=== PATIENT | female | born 1945 | race Caucasian/White ===

== ENCOUNTER → 2018-01-19 | Outpatient (CLI) | payer MEDICARE ==
[~2018-01-19] MED LIST: ACYC800 PO; ADVIL100 MG PO; AMOCLA875 PO; AZIT250 PO; Diflucan200 MG PO; EYE GTTS; HYDACE10B PO; HYDR1TAB94 PO; OXYACE5T PO; PRED20 PO; Prednisone20 MG PO; Prilosec Otc20 MG PO
== END ==
LOC: LAB EV 18:38 → LAB SHORT 18:38
DX: R30.0 Dysuria (principal)
CPT/HCPCS: 87086

== ENCOUNTER → 2019-02-04 | Outpatient (CLI) | payer MEDICARE ==
[2019-02-04 17:32] LABS: BASOPHILS ABSOLUTE AUTO 0.04 K/mm3 (0.00-0.23); BASOPHILS PERCENT AUTO 1 % (0-2); EOSINOPHILS ABSOLUTE AUTO 0.19 K/mm3 (0.00-0.68); EOSINOPHILS PERCENT AUTO 3 % (0-6); Hematocrit 38.5 % (33.0-51.0); Hemoglobin 12.7 g/dL (11.5-16.0); IMMATURE GRAN ABSOLUTE AUTO 0.03 K/mm3 (0.00-0.10); IMMATURE GRAN PERCENT AUTO 0 % (0-1); LYMPHOCYTES ABSOLUTE AUTO 1.67 K/mm3 (0.84-5.20); LYMPHOCYTES PERCENT AUTO 25 % (21-46); MONOCYTES ABSOLUTE AUTO 0.55 K/mm3 (0.16-1.47); MONOCYTES PERCENT AUTO 8 % (4-13); Mean Corpuscular HGB 29.4 pg (26.0-34.0); Mean Corpuscular Volume 89 fL (80-100); Mean Platelet Volume 10.2 fL (9.1-12.4); NEUTROPHILS ABSOLUTE AUTO 4.22 K/mm3 (1.96-9.15); NEUTROPHILS PERCENT AUTO 63 % (41-73); Platelet Count 287 K/mm3 (150-400); RDW Coefficient Variation 12.8 % (11.7-14.2); Red Blood Cell Count 4.32 M/mm3 (3.80-5.20)
[2019-02-04 17:41] LABS: Albumin, Blood 3.9 g/dL (3.4-5.0); Albumin/Globulin Ratio 0.9 (0.8-1.8); Bilirubin, Total 0.2 mg/dL (0.1-1.0); Bun/Creatinine Ratio 21.7 (12.0-20.0); Calcium, Blood 9.1 mg/dL (8.5-10.1); Creatinine, Blood 0.92 mg/dL (0.40-1.00); Globulin, Blood 4.4 g/dL (2.2-4.0); Potassium, Blood 4.1 mmol/L (3.5-5.5); Total Protein, Blood 8.3 g/dL (6.4-8.2)
== END | disposition home or self-care (01) ==
LOC: LAB SHORT 17:25 → LAB EV 17:25
PROVIDERS: Physician Assistant
DX: R60.0 Localized edema (principal)
CPT/HCPCS: 80053; 83880; 85025

== ENCOUNTER → 2019-02-17 | Outpatient (CLI) | payer MEDICARE ==
[2019-02-17 16:27] LABS: BASOPHILS ABSOLUTE AUTO 0.03 K/mm3 (0.00-0.23); BASOPHILS PERCENT AUTO 1 % (0-2); EOSINOPHILS ABSOLUTE AUTO 0.11 K/mm3 (0.00-0.68); EOSINOPHILS PERCENT AUTO 2 % (0-6); Hemoglobin 12.4 g/dL (11.5-16.0); IMMATURE GRAN ABSOLUTE AUTO 0.02 K/mm3 (0.00-0.10); IMMATURE GRAN PERCENT AUTO 0 % (0-1); LYMPHOCYTES ABSOLUTE AUTO 1.34 K/mm3 (0.84-5.20); LYMPHOCYTES PERCENT AUTO 26 % (21-46); MONOCYTES ABSOLUTE AUTO 0.47 K/mm3 (0.16-1.47); MONOCYTES PERCENT AUTO 9 % (4-13); Mean Corpuscular HGB 29.7 pg (26.0-34.0); Mean Corpuscular HGB Conc 33.5 g/dL (31.5-36.5); Mean Corpuscular Volume 89 fL (80-100); Mean Platelet Volume 10.3 fL (9.1-12.4); NEUTROPHILS ABSOLUTE AUTO 3.17 K/mm3 (1.96-9.15); NEUTROPHILS PERCENT AUTO 62 % (41-73); Platelet Count 249 K/mm3 (150-400); RDW Coefficient Variation 12.9 % (11.7-14.2); RDW Standard Deviation 41.9 fL (35.1-46.3); Red Blood Cell Count 4.17 M/mm3 (3.80-5.20); White Blood Cell Count 5.14 K/mm3 (4.00-11.30)
== END | disposition home or self-care (01) ==
LOC: LAB EV 16:22 → LAB SHORT 16:22
PROVIDERS: Physician Assistant
DX: R22.41 Localized swelling, mass and lump, right lower limb (principal)
CPT/HCPCS: 85025

== ENCOUNTER 2019-06-15 08:19 | Day surgery (SDC) | payer MEDICARE ==
[~2019-06-15] VITALS: Ht 162.6 cm; Wt 57.6 kg
== END 2019-06-15 10:11 | disposition home or self-care (01) ==
LOC: ORSCSDS 08:19
PROVIDERS: Surgery
PROC: 0DBN8ZX Excision of Sigmoid Colon, Via Natural or Artificial Opening Endoscopic, Diagnostic (ICD-10-PCS; principal; 2019-06-15 09:30)
DX: Z12.11 Encounter for screening for malignant neoplasm of colon (principal); D12.5 Benign neoplasm of sigmoid colon; F17.210 Nicotine dependence, cigarettes, uncomplicated
CPT/HCPCS: 88305; J2704; J7120

== ENCOUNTER 2020-11-14 13:05 | Emergency (ER) | payer MEDICARE ==
[~2020-11-14] VITALS: Ht 162.6 cm; Wt 54.4 kg
[2020-11-14 13:54] LABS: BASOPHILS ABSOLUTE AUTO 0.03 K/mm3 (0.00-0.23); BASOPHILS PERCENT AUTO 0 % (0-2); EOSINOPHILS ABSOLUTE AUTO 0.22 K/mm3 (0.00-0.68); EOSINOPHILS PERCENT AUTO 2 % (0-6); Hematocrit 35.8 % (33.0-51.0); Hemoglobin 11.6 g/dL (11.5-16.0); IMMATURE GRAN ABSOLUTE AUTO 0.04 K/mm3 (0.00-0.10); IMMATURE GRAN PERCENT AUTO 0 % (0-1); LYMPHOCYTES ABSOLUTE AUTO 0.68 K/mm3 (0.84-5.20); LYMPHOCYTES PERCENT AUTO 7 % (21-46); MONOCYTES ABSOLUTE AUTO 0.67 K/mm3 (0.16-1.47); MONOCYTES PERCENT AUTO 7 % (4-13); Mean Corpuscular HGB 28.2 pg (26.0-34.0); Mean Corpuscular HGB Conc 32.4 g/dL (31.5-36.5); Mean Corpuscular Volume 87 fL (80-100); Mean Platelet Volume 9.9 fL (9.1-12.4); NEUTROPHILS ABSOLUTE AUTO 7.72 K/mm3 (1.96-9.15); NEUTROPHILS PERCENT AUTO 82 % (41-73); Platelet Count 341 K/mm3 (150-400); RDW Coefficient Variation 13.1 % (11.7-14.2); RDW Standard Deviation 41.2 fL (35.1-46.3); Red Blood Cell Count 4.11 M/mm3 (3.80-5.20); White Blood Cell Count 9.36 K/mm3 (4.00-11.30)
[2020-11-14 14:14] LABS: Alanine Aminotransfer (ALT/SGP 12 U/L (12-78); Albumin, Blood 2.9 g/dL (3.4-5.0); Albumin/Globulin Ratio 0.6 (0.8-1.8); Alk Phos 78 U/L (50-136); Anion Gap 7 mmol/L (6-16); Aspartate Aminotrans (AST/SGOT 13 U/L (12-37); Bilirubin, Total 0.3 mg/dL (0.1-1.0); Blood Urea Nitrogen 19 mg/dL (8-24); CO2, Blood 27 mmol/L (21-32); Calcium, Blood 9.1 mg/dL (8.5-10.1); Chloride, Blood 106 mmol/L (98-108); Creatinine, Blood 0.73 mg/dL (0.40-1.00); Globulin, Blood 4.9 g/dL (2.2-4.0); Glomerular Filtration Rate >60 (60-); Glucose, Blood 97 mg/dL (70-99); Potassium, Blood 4.1 mmol/L (3.5-5.5); Sodium, Blood 140 mmol/L (136-145); Total Protein, Blood 7.8 g/dL (6.4-8.2); Troponin I <0.015 ng/mL (0.000-0.040)
[2020-11-14] MEDS ORDERED: LEVO750 PO (15:50)
[2020-11-14] MEDS ORDERED: CODACE30 PO (16:25)
== END 2020-11-14 16:41 | disposition home or self-care (01) ==
LOC: ER 13:05
PROVIDERS: Physician Assistant
DX: J18.9 Pneumonia, unspecified organism (principal)
CPT/HCPCS: 36415; 71045; 80053; 84484; 85025; 93005; 93010; 99285-25; A9270

== ENCOUNTER 2020-11-18 00:07 | Emergency (ER) | payer MEDICARE ==
[~2020-11-18] VITALS: Ht 162.6 cm; Wt 54.4 kg
[~2020-11-18 00:07] MED LIST changes: +CODACE30 PO; +LEVO750 PO
[2020-11-18 00:36] LABS: BASOPHILS ABSOLUTE AUTO 0.03 K/mm3 (0.00-0.23); BASOPHILS PERCENT AUTO 0 % (0-2); EOSINOPHILS ABSOLUTE AUTO 0.27 K/mm3 (0.00-0.68); EOSINOPHILS PERCENT AUTO 4 % (0-6); Hematocrit 33.1 % (33.0-51.0); Hemoglobin 10.7 g/dL (11.5-16.0); IMMATURE GRAN ABSOLUTE AUTO 0.04 K/mm3 (0.00-0.10); IMMATURE GRAN PERCENT AUTO 1 % (0-1); LYMPHOCYTES PERCENT AUTO 17 % (21-46); MONOCYTES ABSOLUTE AUTO 0.63 K/mm3 (0.16-1.47); MONOCYTES PERCENT AUTO 8 % (4-13); Mean Corpuscular HGB 27.6 pg (26.0-34.0); Mean Corpuscular HGB Conc 32.3 g/dL (31.5-36.5); Mean Corpuscular Volume 86 fL (80-100); NEUTROPHILS ABSOLUTE AUTO 5.33 K/mm3 (1.96-9.15); NEUTROPHILS PERCENT AUTO 70 % (41-73); Platelet Count 379 K/mm3 (150-400); RDW Coefficient Variation 13.1 % (11.7-14.2); RDW Standard Deviation 40.6 fL (35.1-46.3); Red Blood Cell Count 3.87 M/mm3 (3.80-5.20)
[2020-11-18 00:54] LABS: Alanine Aminotransfer (ALT/SGP 11 U/L (12-78); Albumin/Globulin Ratio 0.7 (0.8-1.8); Alk Phos 78 U/L (50-136); Anion Gap 7 mmol/L (6-16); Aspartate Aminotrans (AST/SGOT 14 U/L (12-37); Bilirubin, Total 0.3 mg/dL (0.1-1.0); Blood Urea Nitrogen 35 mg/dL (8-24); Bun/Creatinine Ratio 28.7 (12.0-20.0); CO2, Blood 27 mmol/L (21-32); Calcium, Blood 9.1 mg/dL (8.5-10.1); Chloride, Blood 104 mmol/L (98-108); Creatinine, Blood 1.22 mg/dL (0.40-1.00); Globulin, Blood 4.6 g/dL (2.2-4.0); Glomerular Filtration Rate 46 (60-); Glucose, Blood 97 mg/dL (70-99); Potassium, Blood 3.8 mmol/L (3.5-5.5); Sodium, Blood 138 mmol/L (136-145); Total Protein, Blood 7.6 g/dL (6.4-8.2); Troponin I <0.015 ng/mL (0.000-0.040)
== END 2020-11-18 02:53 | disposition home or self-care (01) ==
LOC: ER 00:07
PROVIDERS: Emergency Medicine
DX: J18.9 Pneumonia, unspecified organism (principal); F17.200 Nicotine dependence, unspecified, uncomplicated; Z79.899 Other long term (current) drug therapy
CPT/HCPCS: 36415; 71046; 80053; 83605; 84484; 85025; 87040; 93005; 93010; 96374; 99285-25; J1885

== ENCOUNTER 2020-11-20 02:50 | Inpatient (IN) | payer MEDICARE ==
[~2020-11-20] VITALS: Ht 162.6 cm; Wt 55.0 kg
[2020-11-20 03:11] LABS: BASOPHILS ABSOLUTE AUTO 0.02 K/mm3 (0.00-0.23); BASOPHILS PERCENT AUTO 0 % (0-2); EOSINOPHILS ABSOLUTE AUTO 0.08 K/mm3 (0.00-0.68); EOSINOPHILS PERCENT AUTO 1 % (0-6); Hematocrit 38.8 % (33.0-51.0); Hemoglobin 12.8 g/dL (11.5-16.0); IMMATURE GRAN ABSOLUTE AUTO 0.03 K/mm3 (0.00-0.10); IMMATURE GRAN PERCENT AUTO 0 % (0-1); LYMPHOCYTES ABSOLUTE AUTO 0.78 K/mm3 (0.84-5.20); LYMPHOCYTES PERCENT AUTO 10 % (21-46); MONOCYTES ABSOLUTE AUTO 0.37 K/mm3 (0.16-1.47); MONOCYTES PERCENT AUTO 5 % (4-13); Mean Corpuscular HGB 28.1 pg (26.0-34.0); Mean Corpuscular Volume 85 fL (80-100); Mean Platelet Volume 9.9 fL (9.1-12.4); NEUTROPHILS ABSOLUTE AUTO 6.94 K/mm3 (1.96-9.15); NEUTROPHILS PERCENT AUTO 84 % (41-73); Platelet Count 403 K/mm3 (150-400); RDW Coefficient Variation 13.2 % (11.7-14.2); RDW Standard Deviation 41.1 fL (35.1-46.3); Red Blood Cell Count 4.55 M/mm3 (3.80-5.20); White Blood Cell Count 8.22 K/mm3 (4.00-11.30)
[2020-11-20 03:29] LABS: Alanine Aminotransfer (ALT/SGP 10 U/L (12-78); Albumin, Blood 2.8 g/dL (3.4-5.0); Albumin/Globulin Ratio 0.6 (0.8-1.8); Alk Phos 72 U/L (50-136); Anion Gap 9 mmol/L (6-16); Aspartate Aminotrans (AST/SGOT 12 U/L (12-37); Bilirubin, Total 0.3 mg/dL (0.1-1.0); Blood Urea Nitrogen 29 mg/dL (8-24); Bun/Creatinine Ratio 31.1 (12.0-20.0); CO2, Blood 26 mmol/L (21-32); Calcium, Blood 9.4 mg/dL (8.5-10.1); Chloride, Blood 105 mmol/L (98-108); Creatinine, Blood 0.93 mg/dL (0.40-1.00); Globulin, Blood 4.9 g/dL (2.2-4.0); Glomerular Filtration Rate >60 (60-); Glucose, Blood 143 mg/dL (70-99); Sodium, Blood 140 mmol/L (136-145); Total Protein, Blood 7.7 g/dL (6.4-8.2)
[2020-11-20 03:59] LABS: Source, Urine Clean Catch
[2020-11-20 04:02] LABS: Bilirubin, Urine Neg (Neg); Blood, Urine 1+ (Neg); Glucose Qualitative, Urine Neg (Neg); Ketones, Urine 2+ (Neg); Leukocyte Esterase, Urine 1+ (Neg); Nitrite, Urine Neg (Neg); Protein, Urine 2+ (Neg); Specific Gravity, Urine 1.025 (1.003-1.022); Urobilinogen, Urine NORM (Normal)
[2020-11-20 04:04] LABS: Appearance, Urine Clear (Clear); Color, Urine Yellow (P-Yellow)
[2020-11-20 04:08] LABS: Bacteria Many /hpf; Mucus Mod (0-Heavy); Red Blood Cells, Urine 0-2 /hpf (0-2); Squamous Epithelial Cells Mod /hpf (Few)
[2020-11-20 06:42] LABS: Influenza A, PCR NEGATIVE (NEGATIVE); Influenza B, PCR NEGATIVE (NEGATIVE); Resp Syncytial Virus, PCR NEGATIVE (NEGATIVE); SARS-Cov-2 (COVID-19) PCR, MMC NEGATIVE (NEGATIVE)
--- NOTE | 2020-11-20 08:06 | NUR ---
11/20/20 0806 ABDIRASHIDCATHLEEN POTTER PT RECEIVED ANTIBIOTICS PRIOR TO PROCEDURE, DR COLMENARES AWARE, NO NEW ORDERS.
--- NOTE | 2020-11-20 10:21 | NUR ---
ICU ADMISSION / DR COLMENARES: BEDSIDE REPORT RECEIVED FROM DR WAGGONER, ANESTHESIOLOGIST, AT TIME OF PT ARRIVAL TO ICU AT APPROX 0825. ON ASSESSMENT, THE PT IS AWAKE, ALERT & ORIENTED. SHE IS GRIMACING & HAS C/O OF PAIN TO ABDOMEN. SHE IS UNABLE TO NUMERICALLY RATE THE PAIN & INSTEAD STS "ITS THE WORST PAIN I'VE EVER HAD." MEDS PER EMAR. LS COARSE T/O, DIM IN BASES. PT HAS MOIST COUGH AT TIMES BUT IS UNWILLING TO COUGH FULLY R/T PAIN. IMPORTANCE OF COUGHING/DEEP BREATHING HAS BEEN DISCUSSED & THE PT HAS BEEN PROVIDED W/ A PILLOW TO SPLINT ABDOMEN DURING COUGHING. PT CURRENTLY ON 5L NC W/ O2 SATS > 92%, O2 TITRATION NOTED IN FLOWSHEET. MONITOR SHOWS SR W/ HR 80s. HYPOTENSION W/ SBP 90s AT TIMES, MAP MAINTAINING > 65. ABD IS TENDER AT REST. BT NORMOACTIVE x4. NGT IN PLACE TO L NARE, ATTACHED TO LIS. MIDLINE INCISION W/ BOGDAN WOUND VAC IN PLACE, DRESSING CDI. LUCAS DRAIN IN PLACE TO RUQ, SS OUTPUT NOTED. KING PATENT/ DRAINING CLOUDY YELLOW URINE. SKIN CONDITION OVERALL FRAGILE, ECCHYMOTIC, INTACT. DR COLMENARES AT BEDSIDE AT APPROX 0840. SHE STS THE PT IS TO REMAIN NPO W/ NGT TO LIS. LUCAS TO BULB SUCTION. CLARIFIED THAT 80 MG OT DOSE OF PROTONIX WAS GIVEN IN ED. NO OTHER CHANGES AT THIS TIME. WILL CONTINUE TO MONITOR & UPDATE NEEDED.
--- NOTE | 2020-11-20 13:16 | NUR ---
UPDATE / DR BUCKNER: THE PT IS NOW MORE AWAKE & STS THAT PAIN LEVEL IS IMPROVING. SHE IS TOLERATING REPOSITIONING WELL & AGREEABLE TO CARE PROVIDED. VSS. MIDLINE ABD DRESSING CDI & LUCAS CONTINUES W/ SS OUTPUT. DR BUCKNER AT BEDSIDE TO EVAL PT. NS ORDERS PLACED FOR MAINTAINENCE IVF. NO OTHER CHANGES AT THIS TIME.
--- NOTE | 2020-11-20 15:00 | NUR ---
FAMILY UPDATE: THIS RN HAS SPOKEN W/ BOTH OF THE PT's DAUGHTERS, LISTED ON INFO RELEASE, & PROVIDED THEM W/ UPDATES ON THE PT. DURING THIS TIME, ONE OF THE DAUGHTERS HAS INFORMED THIS RN THAT THE PT's SIBLINGS & FATHER HAVE ALL FROM GI CANCER & RELATED ULCERATIONS.
--- NOTE | 2020-11-20 16:18 | NUR ---
ADMIT: 11/20/20 DISCHARGE: DX: Perforated Abd viscus CC:kwilcox MARILYNN CALL: RESIDENCE: Home CAREGIVER: ANGELITO ALEX (CHILD) DX: Abdominal pain, COPD, low back pain, smoker DME: compression stocking CCM: HOME HEALTH: none SUMMARY: Admit: 11/20/20 11/20/20- pt had exploratory surgery today, exploratory laparotomy. Per chart review with Dr. Irving, pt will need at least 3 days in the hospital prior to d/c. -kjw
--- NOTE | 2020-11-20 17:25 | NUR ---
SHIFT SUMMARY: NO ACUTE CHANGES SINCE PRIOR UPDATES. PT REMAINS A&O, PLEASANT & COOPERATIVE W/ CARE. SHE HAS BEEN ABLE TO TALK ON THE PHONE W/ HER FAMILY T/O THE DAY & REPORTS OVERALL IMPROVEMENT IN HER ABD PAIN - MEDS PER EMAR. LS REMAIN COARSE T/O, PT HAS BEEN ABLE TO BETTER EXPECTORATE SPUTUM BY USING PILLOW TO SPLINT ABD DURING COUGHING. SPUTUM IS CLEAR W/ OCCASIONAL PINK TINGE NOTED. CURRENTLY ON 4L NC W/ O2 SATS > 92%. MONITOR SHOWS SR W/ HR 80s. SLIGHT HYPOTENSION NOTED W/ SBP 80-90s AT TIMES, MAP ON AVG > 60. NGT REMAINS TO LIS W/ BILIOUS OUTPUT NOTED IN TUBING BUT NONE IN CANISTER. MIDLINE BOGDAN WV PATENT W/ GREEN INDICATOR LIGHT BLINKING. LUCAS TO LUQ W/ CLOUDY SS OUTPUT. KING PATENT/ DRAINING YELLOW URINE. SKIN CONDITION OVERALL FRAGILE, Q2H REPOSITIONING TO MAINTAIN SKIN INTEGRITY. WILL CONTINUE TO MONITOR & REPORT OFF TO ONCOMING RN.
--- NOTE | 2020-11-20 21:46 | NUR ---
Care Assumed 1900 Pt A/O X 4, slow to respond at times and soft spoken. Calm and cooperative. On 2 L via NC, SPO2 > 90%. NSR. NGT in L nare, LIS with bilious output noted. Midline BOGDAN WV patient w/ green light blinking, abd dressing C/D/I. LUCAS to LUQ w/ cloudy SS output. Frausto patient/draining yellow urine. Patient complains of abd pain frequently, moaning and states pain 10/10. Susan DISABILITY EXAMINER called and new orders recieved. Patient hypotensive after receiving Fentanyl 50 mcg, MAP > 59. Susan DISABILITY EXAMINER, called and received orders for 500 NS Bolus. MAP > 65. Patients states "pain is better." Patient uses pillow to splint when coughing, educated on importance of deep breathing. Pt is a "mouth breather" while sleeping. Call light within reach.
--- NOTE | 2020-11-21 00:28 | NUR ---
Update Pt sleeping, easily awakens. Denies being in pain at this time. Will continue to monitor.
[2020-11-21 04:21] LABS: Hematocrit 27.7 % (33.0-51.0); Hemoglobin 8.8 g/dL (11.5-16.0); Mean Corpuscular HGB 28.5 pg (26.0-34.0); Mean Corpuscular HGB Conc 31.8 g/dL (31.5-36.5); Mean Platelet Volume 9.9 fL (9.1-12.4); Platelet Count 239 K/mm3 (150-400); RDW Coefficient Variation 13.6 % (11.7-14.2); RDW Standard Deviation 44.3 fL (35.1-46.3); Red Blood Cell Count 3.09 M/mm3 (3.80-5.20); White Blood Cell Count 10.81 K/mm3 (4.00-11.30)
--- NOTE | 2020-11-21 04:25 | NUR ---
Update- downtime Dr. Alexandre called at 0101 and recieved orders to give patient 500 NS bolus and increase maintaince fluid rate to 150 ml/hr. Patient MAP > 59. Pt a/o x 4. 0400 Dr. Alexandre called again in regards to patients low MAPs and recieved new orders.
[2020-11-21 04:39] LABS: Anion Gap 4 mmol/L (6-16); Blood Urea Nitrogen 14 mg/dL (8-24); Bun/Creatinine Ratio 20.5 (12.0-20.0); CO2, Blood 26 mmol/L (21-32); Calcium, Blood 7.5 mg/dL (8.5-10.1); Chloride, Blood 116 mmol/L (98-108); Creatinine, Blood 0.68 mg/dL (0.40-1.00); Glomerular Filtration Rate >60 (60-); Glucose, Blood 101 mg/dL (70-99); Potassium, Blood 4.2 mmol/L (3.5-5.5); Sodium, Blood 146 mmol/L (136-145)
[2020-11-21 04:41] LABS: Mean Corpuscular Volume 90 fL (80-100)
--- NOTE | 2020-11-21 05:03 | NUR ---
Provider call, MAP > 59, Hbg 8.8 Provider called in regards to patients low MAP and Hgb of 8.8. Recieved orders to started Levophed peripherally.
--- NOTE | 2020-11-21 06:18 | NUR ---
Shift Summary Pt on Norepinephrine GTT 3 mcg/min, MAP > 65, infusing via right wrist IV. IV flushing and site without infiltration, frequent checks. Pt sleeping/resting t/o shift. ABD pain treated per emar with good effect. Midline ABD dressing C/D/I, wound vac with green light. LUQ with LUCAS drain, SS output. Frausto in place, draining to gravity, 600 ml of clear yellow urine. Patient recieved three 500 NS bolus t/o shift to keep MAP > 65. Started on Levophed with good effect. Pt continues to be A/O X 4, calm/cooperative. NSR. ON 2 L via NC, SPO2 > 90%. Will report to oncoming shift.
--- NOTE | 2020-11-21 09:00 | NUR ---
ASSUMED CARE: REPORT RECEIVED FROM CLAIRE Vuong RN. ASSUMED CARE OF THIS PT AT APPROX 0700. ON ASSESSMENT, THE PT IS RESTING QUIETLY. SHE DENIES THE NEED FOR PAIN MEDS AT THAT TIME & STS SHE IS COMFORTABLE. LS ARE COARSE IN UPPER LOBES, IMPROVED FROM YESTERDAY. PT ON 2L NC W/ O2 SATS > 92%. CONTINUES TO HAVE MOIST COUGH W/ LESS SPUTUM PRODUCTION, PER PT REPORT. MONITOR SHOWS SR W/ HR 80-90s. LEVOPHED CURRENTLY INFUSING AT 3 MCG/MIN FOR HYPOTENSION. OGT CONTINUES TO LIS, PT STS ABD IS TENDER TO PALPATION OR W/ MOVEMENTS. SHE IS ENCOURAGED TO SPLINT COUGHING/ MOVEMENT BY HUGGING PILLOW TO ABD. MIDLINE BOGDAN WV IN PLACE, PATENT W/ GREEN INDICATOR LIGHT BLINKING, DRESSING CDI. LUCAS TO LUQ W/ LARGE AMNTS SS DRAINAGE NOTED. KING PATENT/ DRAINING CLOUDY YELLOW URINE. SKIN CONDITION OVERALL INTACT, ECCHYMOTIC. Q2H REPOSITIONING TO MAINTAIN SKIN INTEGRITY. WILL CONTINUE TO MONITOR & UPDATE NEEDED.
[2020-11-21 12:27] LABS: Hematocrit 32.3 % (33.0-51.0); Hemoglobin 10.1 g/dL (11.5-16.0); Mean Corpuscular HGB 28.3 pg (26.0-34.0); Mean Corpuscular HGB Conc 31.3 g/dL (31.5-36.5); Mean Corpuscular Volume 91 fL (80-100); Mean Platelet Volume 9.7 fL (9.1-12.4); Platelet Count 282 K/mm3 (150-400); RDW Coefficient Variation 13.8 % (11.7-14.2); RDW Standard Deviation 45.5 fL (35.1-46.3); Red Blood Cell Count 3.57 M/mm3 (3.80-5.20); White Blood Cell Count 15.69 K/mm3 (4.00-11.30)
--- NOTE | 2020-11-21 17:37 | NUR ---
SUMMARY: Admit: / Per Dr Irving, he will order PT OT for discharge assessment, ETA discharge or Friday. cp
--- NOTE | 2020-11-21 17:48 | NUR ---
SHIFT SUMMARY: NO ACUTE CHANGES SINCE PRIOR UPDATE. PT REMAINS A&O, PLEASANT & COOPERATIVE, ABLE TO VERBALIZE NEEDS. SHE HAS HAD INTERMITTENT C/O ABD PAIN THIS SHIFT, GENERALLY CORRELATED W/ REPOSITIONING OR OTHER ADLs - MEDS PER EMAR. 2L NC IN USE W/ O2 SATS > 92%, PT NOW PRODUCING LESS SPUTUM & COUGH IS LESS MOIST. MONITOR SHOWS SR W/ HR 80s. LEVOPHED CURRENTLY INFUSING AT 1.5 MCG/MIN FOR HYPOTENSION. OGT TO LIS W/ MINIMAL OUTPUT NOTED. BT HYPOACTIVE. LUCAS TO LUQ W/ MOD AMNTS SS OUTPUT THIS SHIFT - SEE I&O. BOGDAN TO MIDLINE ABD PATENT, DRESSING CDI. KING PATENT/ DRAINING YELLOW URINE. SKIN OVERALL INTACT, ECCHYMOTIC. Q2H REPOSITIONING TO MAINTAIN SKIN INTEGTRITY. DR BUCKNER HAS SEEN THE PT THIS SHIFT, PAIN MED REQUIREMENTS & OVERALL CONDITION DISCUSSED. NO CHANGES AT THIS TIME. WILL CONTINUE TO MONITOR & UPDATE NEEDED.
[2020-11-22 03:33] LABS: Hematocrit 32.7 % (33.0-51.0); Hemoglobin 9.9 g/dL (11.5-16.0); Mean Corpuscular HGB 27.6 pg (26.0-34.0); Mean Corpuscular HGB Conc 30.3 g/dL (31.5-36.5); Mean Corpuscular Volume 91 fL (80-100); Mean Platelet Volume 9.6 fL (9.1-12.4); Platelet Count 251 K/mm3 (150-400); RDW Coefficient Variation 14.1 % (11.7-14.2); RDW Standard Deviation 47.3 fL (35.1-46.3); Red Blood Cell Count 3.59 M/mm3 (3.80-5.20); White Blood Cell Count 16.34 K/mm3 (4.00-11.30)
[2020-11-22 03:55] LABS: Alanine Aminotransfer (ALT/SGP 10 U/L (12-78); Albumin, Blood 1.7 g/dL (3.4-5.0); Albumin/Globulin Ratio 0.5 (0.8-1.8); Alk Phos 46 U/L (50-136); Anion Gap 7 mmol/L (6-16); Aspartate Aminotrans (AST/SGOT 37 U/L (12-37); Bilirubin, Total 0.2 mg/dL (0.1-1.0); Blood Urea Nitrogen 13 mg/dL (8-24); Bun/Creatinine Ratio 18.4 (12.0-20.0); CO2, Blood 23 mmol/L (21-32); Calcium, Blood 7.9 mg/dL (8.5-10.1); Chloride, Blood 116 mmol/L (98-108); Creatinine, Blood 0.71 mg/dL (0.40-1.00); Globulin, Blood 3.7 g/dL (2.2-4.0); Glomerular Filtration Rate >60 (60-); Glucose, Blood 77 mg/dL (70-99); Potassium, Blood 3.7 mmol/L (3.5-5.5); Sodium, Blood 146 mmol/L (136-145); Total Protein, Blood 5.4 g/dL (6.4-8.2)
--- NOTE | 2020-11-22 05:36 | NUR ---
SHIFT SUMMARY PATIENT SLEPT WELL THROUGH NIGHT. PAIN WELL CONTROLLED WITH AVAILABLE PRN MEDICATIONS. VSS. ASSESSMENT IS CHARTED. WILL CONTINUE TO MONITOR.
--- NOTE | 2020-11-22 11:06 | NUR ---
AM NOTE.... ASSUMED CARE OF PT AT 0700. PT IS A&Ox4, SLOW TO RESPOND AND VERY SOFT SPOKEN. PT IS OFF OF LEVOPHED SINCE APROX 0530 PER NOC SHIFT RN REPORT. PT'S BP IS STABLE. PT IS IN NSR IN THE 80'S-90'S, PT HAS DEPENDENT EDEMA TO HER BILAT HANDS AND FEET. 2+ TO HER BUE AND BLE. L/S CLEAR T/O ON 2L NC WITH O2 SATS >90% PT'S RR IS LOW IN AT 8-10 AND SHALLOW D/T PAIN FROM HER ABD SURGICAL SITE. AN I.S. WAS PROVIDED TO THE PT, PT WAS EDUCATED ON ITS USE, PT DEMONSTRATED PROPER USE OF THE I.S. WITH THIS RN. ABD SITE HAS PICCO DRESSING THAT HAS SMALL AMOUNTS OF DRY S/S DRAINAGE. LUCAS DRAIN TO THE LUQ IS DRAINING COPIOUS AMOUNTS OF S/S, THIS HAS BEEN DRAINED APROX EVERY 1-2 HRS SO FAR THIS SHIFT. PT WAS MEDICATED FOR PAIN PER EMAR WITH GOOD RESULTS, PT IS VERY DROWSY BUT WAKES EASILY TO VERBAL STIMULI AND TOUCH. KING IS PATNET AND DRAINING CLEAR LIGHT YELLOW URINE TO GRAVITY, NG TUBE IS PATENT AND SET TO LIGHT INT SUCTION. PT WORKED WITH PT/OT AND WAS NERISSA TO GET UP INTO THE CHAIR WITH 2P ASSIST. WHILE UP IN THE CHAIR THE PT'S BP STARTED TO DROP, EFM PROVIDER WAS CALLED AND A NEW ORDER WAS OBTAINED FOR MIDODRENE 10MG TID. THIS WAS GIVEN WITH GOOD RESULTS. WILL CONTINUE TO MONITOR.
--- NOTE | 2020-11-22 16:08 | NUR ---
SUMMARY... NO ACUTE NEGATIVE CHANGES NOTED THIS SHIFT. PT WAS UP IN THE CHAIR WITH 2P MOD TRANSFER. PT HAS A RED AREA TO HER BUTTOCKS, IT IS BLANCHABLE AND A MEPILEX WAS PLACED TO ADD PRETECTION TO THE AREA. PT'S NG CONTINUES TO HAVE VERY MINIMAL OUTPUT WHEN HOOKED TO LOW INT SUCTION. PT'S LUCAS DRAIN CONTINUES TO HAVE A LARGE AMOUNT OF S/S OUTPUT APROX 60MLS/Q2HRS. KING WAS D/C'D AT 1600 PER ORDERS. PT'S RR HAS IMPROVED WITH A DECREASED AMOUNT OF IV NARCOTICS GIVEN THIS SHIFT. PT'S BP CONTINUES TO BE STABLE WITH THE MIDODRENE. NO CHANGES TO THE PICCO DRESSING OR THE LUCAS DRESSING. ATTENDS WAS PUT IN PLACE AFTER THE D/C OF THE KING CATH. PT IS TO TRANSFER TO PCU 3. WILL CONTINUE TO MONITOR UNTIL REPORT IS GIVEN AND PT IS TRANSFERED TO PCU.
--- NOTE | 2020-11-22 16:36 | NUR ---
Call to Fely Dominguez for telephone report. she will call soon.
--- NOTE | 2020-11-22 16:44 | NUR ---
Telephone report received from JAVI Geiger at this time.
--- NOTE | 2020-11-22 17:42 | NUR ---
Spiritual care note: Mrs. Du was very sleepy and weak. She nodded 'yes' to prayer, but fell back to sleep. I prayed for her and will remain available.
--- NOTE | 2020-11-22 17:56 | NUR ---
Pt arrived to PCU 3; She is craning her neck, holding her arms bent in front of her, weak very moist sounding cough, productive with white thick frothy sputum. She appears not to want to move at all, and is very sensitive to any movement and touch. States that her 'tummy hurts'. Eyes half open, appears very weak and sleepy. NGT to Low intermittent suction. Oxygen delivery 2 l/min, vital signs taken and documented. Continuous pulse oximetry in place. vital signs stable IV fluids infusing per orders, via 20 g IV in the right medial wrist.
--- NOTE | 2020-11-22 18:05 | NUR ---
Midline abdominal dressing is clean, dry and intact. Noted rupert drain in place. LUCAS drain also in place right upper abdomen, with serosanginous drainage in the bulb. SCDs are in place.
--- NOTE | 2020-11-22 18:33 | NUR ---
pulmonary toilet: Pt spo2 was 86-88. Very coarse sounding and weak cough. Had pt use flutter valve a few times, deep breathing and coughing, and was able to suction orally moderate amount of very thick white secretions. Shampoo, oral care and face wash done. spo2 on 3 l/min is 93%. She is asking for pain medication.
--- NOTE | 2020-11-23 05:15 | NUR ---
SHIFT SUMMARY PT WAS ALERT AND RESPONSIVE TO VERBAL STIMULI. DIFFICULT TO ASSESS MENTATION PT WAS UNABLE TO SPEAK WELL. RESPONSES WERE SLOW AND MINIMAL. PT ABLE TO ANSWER YES/NO QUESTIONS AND SAY SHORT MINIMAL WORDS. PT SHOWED TO BE ORIENTED TO PERSON, PLACE, AND TIME. PT BASELINE IS UNKNOWN. RESPIRATORY STATUS INCREASED AT START OF SHIFT WITH O2 NEED UP TO 4LPM NC. RESPIRTORY RATE WAS SLOW WITH A VERY WEAK COUGH, NOT STRONG ENOUGH TO CLEAR SECRETIONS. LUNGS CRACKLY AND WET SOUNDING. O2 SATS 85-95% ON 4LPM, ATTEMPTED TO TITRATE PT DOWN WITH MINIMAL SUCCESS. COUGH AND DEEP BREATHING COACHING WITH PT HAD MINIMAL SHORT-TERM POSITIVE EFFECT ON O2 NEEDS. SURGICAL SITES REMAINED C/D/I. AROUND 100ML OUT OF LUCAS DRAIN. FLUID COLOR SEROSANGUINEOUS AT FIRST EMPTY THEN CLEAR/YELLOW AT SECOND EMPTYING. WOUND VAC DRESSING HAS GOOD SEAL WITH VACCUUM MAINTAINED. VITALS WERE STABLE WITH BP HYPOTENSIVE T/O THE SHIFT AT 97-107 SYSTOLIC, MAP'S >65. HR 90'S. NO ELEVATED TEMP. PAIN CONTROLLED WITH PRN MEDICATION. PT HAD A QUIET UNEVENTFUL NIGHT. PT STATED HAVING PAIN THAT WAS WELL CONTROLLED WITH PRN MEDICATIONS
--- NOTE | 2020-11-23 10:54 | NUR ---
NOTICED WATERY DRAINIAGE MIXED W BLOOD LEAKING FROM R WRIST IV SITE. PLACED IV FLUIDS ON SBY AND REMOVED PERIPHERAL IV, PT TOLERATED ADEQUATELY BUT HAD SOME TENDERNESS WITH REMOVAL OF THE FILM DRESSING. NO SIGNS OF INFILTRATION/INFECTION/IRRITATION TO SITE. MINIMAL BLEEDING POST REMOVAL, GAUZE AND COBAN DRESSING PLACED.
--- NOTE | 2020-11-23 11:37 | NUR ---
Assisted up to chair with physical therapist. Sitting up in chair after the activity, spo2 84% on 2 l/min. Encouraged deep breathing through her nose and spo2 improved to 86%. O2 delivery increased to 3 l/min, pt continued to deep breathe and spo2 improved to 89%. Encouraged use of flutter valve, which she is doing now. States she smokes 1 pack of cigarettes/day. Oral care done by the patient with minimal assistance. she was able to put her dentures in by herself.
--- NOTE | 2020-11-23 13:19 | NUR ---
CALL TO DR. Irving regarding his concern for oversedation in the patient. New orders to dc fentanyl, added toradol and VBG. Pt just now was shouting "help" because she had pulled her teeth out, glasses off, and had it tangled up in her oxygen tubing and NG tube. NGT is still correctly placed. Reapplied the oxygen tubing; pt has spo2 88-91% on 3 l/min Oxygen delivery. She is sitting up in the recliner chair, upright at this time. She is asking for pain relief.
[2020-11-23 13:46] LABS: PCO2 Venous 49.6 mmHg (38-42); pH Blood Venous 7.36 (7.34-7.37)
[2020-11-23 13:47] LABS: Base Excess Venous 2.4 mmol/L; Bicarbonate Venous 25.8 mmol/L (24.0-30.0); PO2 Venous 37.7 mmHg (38-42)
--- NOTE | 2020-11-23 13:49 | NUR ---
PLACED CALL BACK TO DAUGHTER IN LAW SUDHEER ABI AFTER VERIFYING CONSENT FOR RELEASE OF INFORMATION IN PAPER CHART OUTSIDE PT'S ROOM. DAUGHTER IN LAW EXPRESSED CONCERN THAT THE FAMILY DOES NOT WANT THE PATIENT TO DISCHARGE TO [facility]. NETEZZA DEVELOPER VERBALIZED TO HER THAT THERE ARE NO PLANS TO DISCHARGE TODAY. SUDHEER REPORTS SHE IS ALSO AWAITING A CALL BACK FROM REAL ESTATE ANALYST AT THIS TIME.
--- NOTE | 2020-11-23 13:53 | NUR ---
SUMMARY: ADMIT: 11/20/20 11/23/20- PER CHART REVIEW WITH DR. BUCKNER, PT IS STILL VERY SICK AND THERE IS NO ETA FOR D/C AT THIS TIME. PT COULD POTENTIAL BE D/C NEXT WEEK. FILLED OUT SNF REF. FORM AND GAVE TO [facility] TO HAVE PT REVIEWED BUT AFTER SPEAKING WITH DR BUCKNER, REQUESTED THAT THIS BE PUT ON HOLD UNTIL PT IS STABLE TO D/C. CALLED AND SPOKE WITH PT'S BASIM ROSALES. STATES THAT HE IS NOT CAPABLE OF BEING FULL-TIME CAREGIVER FOR HIS HE HAS TROUBLE WITH MOBILITY HIMSELF. HE DID STATE THAT PT HAS A "SIT TO STAND" CHAIR TO HELP GET HER OUT OF THE CHAIR. HE DID STATE THAT THEIR SON [place] BUT HE IS DISABLED AND MOST LIKELY COULD NOT HELP WITH CARE OF PT EITHER DUE TO PROBLEMS WITH HIS HANDS. STATES THAT THEY CAN NOT AFFORD TO MOVE INTO ASSISTED LIVING AND THEY CAN'T AFFORD TO HIRE ANY CAREGIVERS BECAUSE THEY HAVE JUST ENOUGH MONEY TO COVER THEIR RENT AND BILLS. THEY GET FOOD STAMPS FOR FOOD. THEY HAVE TRIED TO APPLY FOR MEDICAID/OHP BUT THEY WERE TOLD THEY MAKE TOO MUCH MONEY ($14-18 TOO MUCH.) HE STATES THAT THEY HAVE TRIED MULTI. TIMES TO GET ON OHP. CALLED [employer] TO SEE IF PT HAS BENEFITS WITH THEM. WAS TOLD THAT PT HAS MEDICAL AND SNAP BENEFITS AND IS ELIGIBLE FOR LONG-TERM CARE BENEFITS. PT WOULD NEED TO APPLY FOR SERVICES. WAS PROVIDED WITH WAYS THAT THIS CAN BE DONE; ONLINE AT [email or web address], FILL OUT ONLINE APPLICATION; CALL [phone] OR THEY CAN GO IN PERSON. PT WOULD HAVE TO DO THIS HERSELF OR GIVE CONSENT TO HAVE SON OR TO APPLY FOR BENEFITS ON HER BEHALF. CALLED AND LMOM FOR SON TO RETURN CALL TO SEE IF HE CAN AID IN GETTING SERVICES FOR PT.- MARGIE
--- NOTE | 2020-11-23 15:12 | NUR ---
Pt pulled the NG tube out by herself, stated that it was hurting her. There has been minimal drainage from the low intermittent suction. Pt has hypoactive bowel tones. Dr. Wyman called and orders to d/c NGT was received.
--- NOTE | 2020-11-23 16:13 | NUR ---
SUMMARY: ADMIT: 11/20/20 11/23/20- SPOKE WITH [id number], UYEN ALEX, WHO CALLED [facility] WITH CONCERNS ABOUT PT BEING DISCHARGED. SHE STATED THAT FAMILY WAS "FREAKING OUT" STATING THAT PT WAS GOING TO BE D/C TO [facility] AND THEY HAD NO SAY IN HER CARE. UYEN TOLD FAMILY THAT SHE WOULD REACH OUT AND GET CLARIFICATION OF WHAT IS THE PLAN WITH THE PT BECAUSE SHE DOESN'T FEEL THAT THIS WOULD BE CONTINUED. DISCUSSED WITH HER THAT DOCTOR IS NOT GOING TO BE D/C THE PT ANYTIME SOON SHE IS NOT MEDICALLY STABLE. SPOKE WITH UYEN AND SHE STATES THAT THERE ARE PLENTY OF FAMILY TO HELP THE PT AT HOME AND THEY FEEL THAT IT WOULD BE BEST IF THE PT WENT HOME WITH SERVICES THAN GO TO SNF. DISCUSSED WITH HER THAT CONVERSATION WAS HAD WITH AND HE EXPRESSED THAT HE COULD NOT TAKE CARE OF HER AND WE NEED TO MAKE SURE THAT SHE HAS A SAFE D/C WHERE EVER SHE GOES. ALSO DISCUSSED WITH HER THE CONVERSATION WITH PT'S ABOUT FINANCES AND WHAT THEY COULD AFFORD. DISCUSSED BENEFITS AVAILABLE THROUGH [employer]. DAUGHTER REQUESTED AN EMAIL BE SENT TO HER WITH THE INFORMATION. SENT GENERIC INFORMATION OF HOW TO GET IN CONTACT WITH [employer] THROUGH ONLINE, PHONE OR IN PERSON. DAUGHTER IN LAW WILL REACH OUT TO FAMILY AND UPDATE THEM ON PLAN FOR PT.-KJW 11/23/20- PER CHART REVIEW WITH DR. BUCKNER, PT IS STILL VERY SICK AND THERE IS NO ETA FOR D/C AT THIS TIME. PT COULD POTENTIAL BE D/C NEXT WEEK. FILLED OUT SNF REF. FORM AND GAVE TO [facility] TO HAVE PT REVIEWED BUT AFTER SPEAKING WITH DR BUCKNER, REQUESTED THAT THIS BE PUT ON HOLD UNTIL PT IS STABLE TO D/C. CALLED AND SPOKE WITH PT'S BASIM ORSALES. STATES THAT HE IS NOT CAPABLE OF BEING FULL-TIME CAREGIVER FOR HIS HE HAS TROUBLE WITH MOBILITY HIMSELF. HE DID STATE THAT PT HAS A "SIT TO STAND" CHAIR TO HELP GET HER OUT OF THE CHAIR. HE DID STATE THAT THEIR SON [place] BUT HE IS DISABLED AND MOST LIKELY COULD NOT HELP WITH CARE OF PT EITHER DUE TO PROBLEMS WITH HIS HANDS. STATES THAT THEY CAN NOT AFFORD TO MOVE INTO ASSISTED LIVING AND THEY CAN'T AFFORD TO HIRE ANY CAREGIVERS BECAUSE THEY HAVE JUST ENOUGH MONEY TO COVER THEIR RENT AND BILLS. THEY GET FOOD STAMPS FOR FOOD. THEY HAVE TRIED TO APPLY FOR MEDICAID/OHP BUT THEY WERE TOLD THEY MAKE TOO MUCH MONEY ($14-18 TOO MUCH.) HE STATES THAT THEY HAVE TRIED MULTI. TIMES TO GET ON OHP. CALLED [employer] TO SEE IF PT HAS BENEFITS WITH THEM. WAS TOLD THAT PT HAS MEDICAL AND SNAP BENEFITS AND IS ELIGIBLE FOR LONG-TERM CARE BENEFITS. PT WOULD NEED TO APPLY FOR SERVICES. WAS PROVIDED WITH WAYS THAT THIS CAN BE DONE; ONLINE AT [email or web address], FILL OUT ONLINE APPLICATION; CALL [phone] OR THEY CAN GO IN PERSON. PT WOULD HAVE TO DO THIS HERSELF OR GIVE CONSENT TO HAVE SON OR TO APPLY FOR BENEFITS ON HER BEHALF. CALLED AND LMOM FOR SON TO RETURN CALL TO SEE IF HE CAN AID IN GETTING SERVICES FOR PT.- MAGGIE: ADMIT: 11/20/20 11/23/20- SPOKE WITH [id number], UYEN ABI, WHO CALLED [facility] WITH CONCERNS ABOUT PT BEING DISCHARGED. SHE STATED THAT FAMILY WAS "FREAKING OUT" STATING THAT PT WAS GOING TO BE D/C TO [facility] AND THEY HAD NO SAY IN HER CARE. UYEN TOLD FAMILY THAT SHE WOULD REACH OUT AND GET CLARIFICATION OF WHAT IS THE PLAN WITH THE PT BECAUSE SHE DOESN'T FEEL THAT THIS WOULD BE CONTINUED. DISCUSSED WITH HER THAT DOCTOR IS NOT GOING TO BE D/C THE PT ANYTIME SOON SHE IS NOT MEDICALLY STABLE. SPOKE WITH UYEN AND SHE STATES THAT THERE ARE PLENTY OF FAMILY TO HELP THE PT AT HOME AND THEY FEEL THAT IT WOULD BE BEST IF THE PT WENT HOME WITH SERVICES THAN GO TO SNF. DISCUSSED WITH HER THAT CONVERSATION WAS HAD WITH AND HE EXPRESSED THAT HE COULD NOT TAKE CARE OF HER AND WE NEED TO MAKE SURE THAT SHE HAS A SAFE D/C WHERE EVER SHE GOES. ALSO DISCUSSED WITH HER THE CONVERSATION WITH PT'S ABOUT FINANCES AND WHAT THEY COULD AFFORD. DISCUSSED BENEFITS AVAILABLE THROUGH [employer]. DAUGHTER REQUESTED AN EMAIL BE SENT TO HER WITH THE INFORMATION. SENT GENERIC INFORMATION OF HOW TO GET IN CONTACT WITH [facility] THROUGH ONLINE, PHONE OR IN PERSON. DAUGHTER IN LAW WILL REACH OUT TO FAMILY AND UPDATE THEM ON PLAN FOR PT.-MARGIE 11/23/20- PER CHART REVIEW WITH DR. BUCKNER, PT IS STILL VERY SICK AND THERE IS NO ETA FOR D/C AT THIS TIME. PT COULD POTENTIAL BE D/C NEXT WEEK. FILLED OUT SNF REF. FORM AND GAVE TO [facility] TO HAVE PT REVIEWED BUT AFTER SPEAKING WITH DR BUCKNER, REQUESTED THAT THIS BE PUT ON HOLD UNTIL PT IS STABLE TO D/C. CALLED AND SPOKE WITH PT'S BASIM ROSALES. STATES THAT HE IS NOT CAPABLE OF BEING FULL-TIME CAREGIVER FOR HIS HE HAS TROUBLE WITH MOBILITY HIMSELF. HE DID STATE THAT PT HAS A "SIT TO STAND" CHAIR TO HELP GET HER OUT OF THE CHAIR. HE DID STATE THAT THEIR SON L[place] BUT HE IS DISABLED AND MOST LIKELY COULD NOT HELP WITH CARE OF PT EITHER DUE TO PROBLEMS WITH HIS HANDS. STATES THAT THEY CAN NOT AFFORD TO MOVE INTO ASSISTED LIVING AND THEY CAN'T AFFORD TO HIRE ANY CAREGIVERS BECAUSE THEY HAVE JUST ENOUGH MONEY TO COVER THEIR RENT AND BILLS. THEY GET FOOD STAMPS FOR FOOD. THEY HAVE TRIED TO APPLY FOR MEDICAID/OHP BUT THEY WERE TOLD THEY MAKE TOO MUCH MONEY ($14-18 TOO MUCH.) HE STATES THAT THEY HAVE TRIED MULTI. TIMES TO GET ON OHP. CALLED [employer] TO SEE IF PT HAS BENEFITS WITH THEM. WAS TOLD THAT PT HAS MEDICAL AND SNAP BENEFITS AND IS ELIGIBLE FOR LONG-TERM CARE BENEFITS. PT WOULD NEED TO APPLY FOR SERVICES. WAS PROVIDED WITH WAYS THAT THIS CAN BE DONE; ONLINE AT [email or web address], FILL OUT ONLINE APPLICATION; CALL [phone] OR THEY CAN GO IN PERSON. PT WOULD HAVE TO DO THIS HERSELF OR GIVE CONSENT TO HAVE SON OR TO APPLY FOR BENEFITS ON HER BEHALF. CALLED AND LMOM FOR SON TO RETURN CALL TO SEE IF HE CAN AID IN GETTING SERVICES FOR PT.- MARGIE
--- NOTE | 2020-11-23 16:52 | NUR ---
Since receiving the Dilaudid, the pt has been sleeping in the recliner chair, reclined. Continuous oximetry shows spo2 holding well into the 94+ range on 2 l/min O2 delivery. She is difficult to awaken, so Midodrine was held at 1600 when MAP was borderline, as she was too sleepy to even attempt a trial of swallowing water. At this time the blood pressure is improved and MAP is 72 and she is still very sleepy and difficult to awaken.
[2020-11-24 03:50] LABS: BASOPHILS ABSOLUTE AUTO 0.01 K/mm3 (0.00-0.23); BASOPHILS PERCENT AUTO 0 % (0-2); EOSINOPHILS ABSOLUTE AUTO 0.29 K/mm3 (0.00-0.68); EOSINOPHILS PERCENT AUTO 4 % (0-6); Hematocrit 30.5 % (33.0-51.0); Hemoglobin 9.5 g/dL (11.5-16.0); IMMATURE GRAN ABSOLUTE AUTO 0.05 K/mm3 (0.00-0.10); IMMATURE GRAN PERCENT AUTO 1 % (0-1); LYMPHOCYTES ABSOLUTE AUTO 0.66 K/mm3 (0.84-5.20); LYMPHOCYTES PERCENT AUTO 8 % (21-46); MONOCYTES ABSOLUTE AUTO 0.55 K/mm3 (0.16-1.47); MONOCYTES PERCENT AUTO 7 % (4-13); Mean Corpuscular HGB 27.7 pg (26.0-34.0); Mean Corpuscular HGB Conc 31.1 g/dL (31.5-36.5); Mean Corpuscular Volume 89 fL (80-100); Mean Platelet Volume 9.6 fL (9.1-12.4); NEUTROPHILS ABSOLUTE AUTO 6.84 K/mm3 (1.96-9.15); NEUTROPHILS PERCENT AUTO 81 % (41-73); Platelet Count 238 K/mm3 (150-400); RDW Coefficient Variation 14.1 % (11.7-14.2); RDW Standard Deviation 46.2 fL (35.1-46.3); Red Blood Cell Count 3.43 M/mm3 (3.80-5.20)
[2020-11-24 04:11] LABS: Alanine Aminotransfer (ALT/SGP 14 U/L (12-78); Albumin, Blood 1.6 g/dL (3.4-5.0); Albumin/Globulin Ratio 0.4 (0.8-1.8); Alk Phos 46 U/L (50-136); Anion Gap 2 mmol/L (6-16); Aspartate Aminotrans (AST/SGOT 27 U/L (12-37); Bilirubin, Total 0.4 mg/dL (0.1-1.0); Blood Urea Nitrogen 17 mg/dL (8-24); Bun/Creatinine Ratio 21.6 (12.0-20.0); CO2, Blood 30 mmol/L (21-32); Calcium, Blood 8.4 mg/dL (8.5-10.1); Chloride, Blood 116 mmol/L (98-108); Creatinine, Blood 0.79 mg/dL (0.40-1.00); Globulin, Blood 3.7 g/dL (2.2-4.0); Glomerular Filtration Rate >60 (60-); Glucose, Blood 90 mg/dL (70-99); Potassium, Blood 3.9 mmol/L (3.5-5.5); Sodium, Blood 148 mmol/L (136-145); Total Protein, Blood 5.3 g/dL (6.4-8.2)
--- NOTE | 2020-11-24 04:52 | NUR ---
SHIFT SUMMARY PT WAS MORE ALERT THAN PREVIOUS NOC SHIFT, ABLE TO FOLLOW DIRESCIONS AND ANSWER MOST QUESTIONS APPROPRIATELY WITH YES OR NO. PER REPORT PT HAS SOME BASELINE CONFUSION, IT DOES NOT SEEM PT IS TO BASELINE YET SHE IS STILL CONFUSED AT TIMES. VERY SLOW TO RESPOND WITH CONSTANT VERBAL STIMULATION. PT STATED HAVING PAIN IN STOMACH, PRN DILAUDID GIVEN AND PT ABLE TP SLEEP, PAIN WAS CONTROLLED. PT WAS ON 3 LPM VIA NC WITH O2 SATS >90% UP TO 4-5 LPM WITH REPOSITIONING AND ORAL CARE. VIATLS WERE STABLE WITH BP 100-135 SYSTOLIC. HR 80-90'S. PT HAS LITTLE CHANGE FROM PREVIOUS NOC SHIFT BUT SEEMS TO BE IMPROVING.
--- NOTE | 2020-11-24 10:55 | NUR ---
PT ALERT TO SELF, PLACE AND CITY. ABLE TO TELL ME WHY SHE IS HERE. VERY SLEEPY AND LETHARGIC. OPENEING EYES TO SOUND AND ANSWERING CARE QUESTIONS APPROPRIATLY. VITAL SIGNS STABLE THIS AM. ON 3 L O2 SATING ABOVE 92%. COUGH IS MOIST, WEAK AND NONPRODUCTIVE. ASSISTED WITH ORAL CARE AND SUCTION. TELE SHOWING SINUS WITH HR IN 80'S. ANTIBIOTICS INFUSING THIS AM. PHYSICAL THERAPY ASSISTED PT TO BS WITH ONE PERSON ASSIST AND GAIT BELT. UPPER GI SCAN PREFORMED THIS AM. MIDLINE BOGDAN WOUND VAC TO SUCTION. LUCAS DRAIN, DRAINING CLEAR/YELLOW FLUID. WILL CONTINUE TO MONITOR AND REPORT OFF.
--- NOTE | 2020-11-24 16:10 | NUR ---
11/24/20- per chart review, pt is currently on 3L of O2. She appears to be improving with her confusion and she is able to communicate with Yes/No questions. Her diet was advanced to clear liquids but she has been changed back to NPO this afternoon due to speech therapy not able to work with pt today. -gabriela
--- NOTE | 2020-11-24 17:18 | NUR ---
PT UP TO RECLINER THIS AFTERNOON. WITH 1-2 PERSON ASSIST USING GAIT BELT AND WALKER. VITAL SIGNS REMAIN STABLE. TELE SHOWING SINUS WITH HR 80'S. ON 3 L O2 SATING AT 94%. DENIES CHEST PAIN. COMPLAIN OF ABDOMEN PAIN. MEDICATED PER EMAR WTH RELIEF. PT SLEEPING THROUGHOUT MOST OF THE SHIFT. USING BSC. BOGDAN WOUND VAC TO MIDLINE INCISION, DRESSING REMAINS INTACT. LUCAS DRAIN TO LUQ, DRAINING CLEAR/YELLOW LIQUID. DRAINING NEEDED. IN TO VISIT PT THIS AFTERNOON. PT COUGH STILL SOUNDING MOIST AND WEAK. ABLE TO COUGH UP SOME WHITE SPUTUM THIS AFTERNOON. SPEECH ATTEMPTED TO ASSESS PT THIS AFTERNOON, BUT PT WAS TOO SLEEPY. REMAINING NPO UNTIL SPEECH ABLE TO ASSESS. ORAL CARE Q4. Q2 TURNS. CALL LIGHT REMAINED IN REACH AND BED IN LOW LOCKED POSITION. WILL CONTINUE TO MONITOR AND REPORT OFF.
--- NOTE | 2020-11-24 19:45 | NUR ---
PT IS ALERT AND ORIENTED X3, HOWEVER SHE ANSWERS YES TO MOST QUESTIONS ASKED. PT HAS A WEAK MOIST COUGH - DEMONSTRATES USE OF PICKLE. CONTINOUS BIOX ON SATS WNL WITH 3L O2 ON. DRESSING TO MID ABDOMEN CD&I WITH BOGDAN DRAIN IN PLACE. LUCAS DRAIN TO LUQ - WITH YELLOW CLEAR LIQUID OUT. PT REPORTS GENERALIZED ALL OVER PAIN, MORE PROMINENT IN MID ABDOMEN, BUT SAYS YES TO PAIN IN ANKLES, ARMS ALSO. PT IS NPO. REVIEWED CALL LIGHT PROCEDURE WITH PT. IV MAINTENANCE FLUIDS INFUSING TO SREEDHAR PG IV WITHOUT COMPLICATIONS. BED ALARM ON FOR PT SAFETY. ORAL CARE PROVIDED. MEPILEX ON COCCYX - CD&I.
--- NOTE | 2020-11-24 20:00 | NUR ---
PT REPORTS RELIEF OF PAIN, PAIN 5/10. CALL LIGHT WITHIN REACH.
--- NOTE | 2020-11-24 20:10 | NUR ---
DR. BUCKNER CALLED IN, UPDATED ON IV FLUIDS INFUSING AND ST DID NOT PERFORM SWALLOW EVAL TODAY PT WAS TOO SLEEPY, HOWEVER RN TIMA TODAY REPORTED PT FAILED BEDSIDE SWALLOW EVAL FOR HER TODAY.
--- NOTE | 2020-11-24 21:54 | NUR ---
PT REPORTS HER PAIN IS "OKAY." CALL LIGHT WITHIN REACH. BED IN LOW POSITION.
--- NOTE | 2020-11-25 06:04 | NUR ---
SHIFT SUMMARY - PT MEDICATED WITH DILAUDED X2 TONIGHT, AND TORADOL X1 - SEE EMAR. PT HAS SLEPT THROUGHOUT MOST OF THE NIGHT - RESPIRATIONS EVEN AND UNLABORED AND SATS WNL. PT DOES DESAT WITH ACTIVITY, WITH REPOSITIONS, BUT RECOVERS WITHIN 30 SECONDS WITH REMINDERS TO TAKE DEEP BREATHS. PT DEMONSTRATED USE OF PICKLE X 2 TONIGHT. ORAL SUCTION PERFORMED WITH WHITE SECRETIONS OUT. ORAL CARE PROVIDED X3 DURING THE NIGHT. CALL LIGHT WITHIN REACH. BED IN LOW POSITION. PT NPO.
--- NOTE | 2020-11-25 18:41 | NUR ---
PT ALERT AND ORIENTED X4. THIS MORNING SLEEPY AND LETHARGIC, NOT VERY INTERESTED IN CONVERSATION. ON 2-3 L O2 SATING AT 93-95%. TELE SHOWING SINUS WITH HR 80'S. PT CHANGED TO SURGICAL STATUS WITH NO TELE. DENIES CHEST PAIN. VITAL SIGNS STABLE, NO ACUTE CHANGES. COMPLAINS OF PAIN IN ABDOMEN. MEDICATED PER EMAR WITH GOOD RELIEF. BOGDAN WOUND VAC, MIDLINE ABDOMEN TO SUCTION. DRESSING REMAINED C/D/I. LUCAS DRAIN TO LUQ, DRAINING YELLOW/CLEAR FLUID. SKIN C/D/I, MEPILEX IN PLACE OVER RED COCCYX. UP TO RECLINER THIS AFTERNOON AND FOR MEALS. CLEAR LIQUID DIET, EATING WITH SUPERVISION. ORAL CARE Q4, Q2 TURNING AND NEEDED. CALL LIGHT IN REACH AND CALLING APPROPRIATLY. CRACKLES HEARD IN THE BASES OF LUNGS, OCCASIONAL WEAK COUGH HEARD - IMPROVED FROM YESTERDAY. IV ZOSYN INFUSED. SREEDHAR POWERGLIDE FLUSHED AND INFUSING D5W NS WITH 20 MEQ AT 75 ML/HR. 1-2 PERSON ASSIST TO BSC USING GAIT BELT AND WALKER. MULTIPLE BOWL MOVEMENTS THIS SHIFT, ATTENDS IN PLACE. EXTREMITIES WEAK, BUT PT ABLE TO FOLLOW COMMANDS. PUPILS REACTIVE TO LIGHT. RIGHT PUPIL NOTED TO HAVE OBLONG SHAPE, PT STATES THAT IS HER NORMAL. IN TO VISIT PT THIS AFTERNOON, MUCH MORE INTERESTED IN CONVERSATION. BED REMAINED IN LOW LOCKED POSITION. WILL CONTINUE TO MONITOR AND REPORT OFF.
--- NOTE | 2020-11-25 23:57 | NUR ---
SHIFT SUMMARY PT ALERT. VITALS ARE STABLE. PT IS ON 2L NC WITH SATS OF >92%. SKIN AND DRAINS ARE C/D/I PT TRANSFERED VIA HOSPITAL BED TO ROOM 325 IN MEDICAL FLOOR. REPORT GIVEN TO JAMES SCHULTZ RN.
--- NOTE | 2020-11-26 04:55 | NUR ---
SHIFT SUMMARY PCU XFER @ 0005, NO ACUTE CHANGES SINCE ASSUMING CARE, PT XFER'D TO BED W/2 ASSIST (MINIMAL) C/O PAIN W/ACTIVITY, MEDICATED PER MAR FOR PAIN, SLEPT INTERMIT T/O THE NIGHT, CALL LIGHT IN REACH, WILL CONT TO MONITOR UNTIL REPORT GIVEN TO DAY RN.
--- NOTE | 2020-11-26 11:17 | NUR ---
DR. BUCKNER INSTRUCTED THIS NURSE TO TITRATE PT's O2 AND CHECK PT's OXYGENTATION STATUS, THIS RN TITRATED PT's O2 FROM 2LPM TO 1LPM AND PT DESAT FROM 92% TO 86%. PT PLACE BACK ON 2LPM O2 VIA NC. PT RESTING IN BED AT THIS TIME. BED AT LOWEST POSITION. CALL LIGHT WITHIN REACH.
--- NOTE | 2020-11-26 16:34 | NUR ---
SHIFT SUMMARY PT A&OX2-3, FORGETFUL AT TIMES. PLEASANT AND COOPERATIVE TO CARE. SON AT BEDSIDE THIS AFTERNOON. PT MEDICATED FOR PAIN AND NAUSEA PER EMAR. NO C/O CP, SOB. PT CONT ON 2LPM O2 VIA NC. LUCAS DRAIN AND BOGDAN WOUND VAC IN PLACE, DRESSINGS C/D/I TO AFFECTED AREA. PT INCONTINENT OF B&B, 2P MAX W/ BED MOBILITY AND TRANSFERS. PT CALM AND RESTED IN BED AT THIS TIME. BED AT LOWEST POSITION. CALL LIGHT WITHIN REACH.
--- NOTE | 2020-11-26 22:54 | NUR ---
CALL TO HOSPITALIST / 6 BEAT RUN OF V-[place] NOTIFIED HOSPITALIST DR. ROBERTS OF 6 BEAT RUN OF V-TACH. OTHERWISE NSR, 75. PT IS SLEEPING AND ASYMPTOMATIC. NO NEW ORDERS AT THIS TIME. WCTM.
--- NOTE | 2020-11-27 04:22 | NUR ---
SHIFT SUMMARY: VSS. AFEB. A/OX3. OCCASIONALLY FORGETFUL AND CALLS OUT RATHER THAN USES CALL BUTTON AT TIMES. MED FOR PAIN X1. PT HAS SLEPT WELL FOR MOST OF THE NIGHT. LUCAS DRAIN PRODUCING MOD AMTS OF CLEAR STRAW COLORED FLUID. PICA DRAIN TO MIDLINE ABD IN PLACE AND ON- SCANT BROWN DISCHARGE OBSERVED ON MIDLINE ABD DRESSING. NEEDS ASSIST W/ TURNS DUE TO PAIN W/ MOVEMENT. NO ACUTE OVERNIGHT EVENTS. WCTM.
--- NOTE | 2020-11-27 19:18 | NUR ---
Spiritual care note: Mrs. Du lives with her spouse and beleives she will be going home in the next few days. She reports a deep ana and was appreciative of ana exploration and prayer. No concerns presented. I will remain available.
--- NOTE | 2020-11-27 22:43 | NUR ---
CALLED HOSPITALIST NOTIFIED HIM OF REPORTED 9 BEAT RUN OF VTACH. VITALS WNL, NO S/SX REPORTED. ORDERS ARE TO CONTINUE TO MONITOR
--- NOTE | 2020-11-28 04:01 | NUR ---
SHIFT SUMMARY ADMITTED FOR ABDOMINAL PAIN/DUODENAL ULCER REPAIR. FULL CODE. POWERGLIDE IN RUE. CRISTIN BROWN DRAIN IN LUQ. TELEMETRY: NSR @ 81 BPM. SEE PREVIOUS NOTE FOR ONE RUN OF VTACH, HOSPITALIST INFORMED. PLAN IS FOR DC HOME W/HH WHEN STABLE. 2 LPM O2 HERE, RA @ HOME. SHE REQUESTED PAIN MEDICATION ONE TIME THIS SHIFT. LOOSE STOOLS REPORTED ON PREVIOUS SHIFT.
[2020-11-28 04:41] LABS: BASOPHILS ABSOLUTE AUTO 0.03 K/mm3 (0.00-0.23); BASOPHILS PERCENT AUTO 0 % (0-2); EOSINOPHILS ABSOLUTE AUTO 0.52 K/mm3 (0.00-0.68); EOSINOPHILS PERCENT AUTO 7 % (0-6); Hematocrit 31.1 % (33.0-51.0); Hemoglobin 9.8 g/dL (11.5-16.0); IMMATURE GRAN ABSOLUTE AUTO 0.15 K/mm3 (0.00-0.10); IMMATURE GRAN PERCENT AUTO 2 % (0-1); LYMPHOCYTES ABSOLUTE AUTO 0.83 K/mm3 (0.84-5.20); LYMPHOCYTES PERCENT AUTO 11 % (21-46); MONOCYTES ABSOLUTE AUTO 0.49 K/mm3 (0.16-1.47); MONOCYTES PERCENT AUTO 6 % (4-13); Mean Corpuscular HGB 27.6 pg (26.0-34.0); Mean Corpuscular HGB Conc 31.5 g/dL (31.5-36.5); Mean Corpuscular Volume 88 fL (80-100); Mean Platelet Volume 9.7 fL (9.1-12.4); NEUTROPHILS PERCENT AUTO 74 % (41-73); Platelet Count 273 K/mm3 (150-400); RDW Coefficient Variation 13.4 % (11.7-14.2); RDW Standard Deviation 42.5 fL (35.1-46.3); Red Blood Cell Count 3.55 M/mm3 (3.80-5.20); White Blood Cell Count 7.72 K/mm3 (4.00-11.30)
[2020-11-28 05:03] LABS: Anion Gap 4 mmol/L (6-16); Blood Urea Nitrogen 9 mg/dL (8-24); Bun/Creatinine Ratio 14.3 (12.0-20.0); CO2, Blood 32 mmol/L (21-32); Chloride, Blood 108 mmol/L (98-108); Creatinine, Blood 0.63 mg/dL (0.40-1.00); Glomerular Filtration Rate >60 (60-); Glucose, Blood 78 mg/dL (70-99); Potassium, Blood 3.7 mmol/L (3.5-5.5); Sodium, Blood 144 mmol/L (136-145)
--- NOTE | 2020-11-28 14:38 | NUR ---
CARE COORDINATION REFERRAL - ADMIT: 11/20/20 DISCHARGE: DX: ABDOMINAL PAIN CC:[id number] SUMMARY: 11/28/20- PER CHART REVIEW WITH DR. KELSEY, PT IS NOT READY TO GO HOME AT THIS TIME. THERE ARE CONCERNS REGARDING HER INTAKE OF FOOD YESTERDAY AT LUNCH AND DINNER AND THIS WAS WHY SHE WAS NOT D/C. WHEN DR. KELSEY MET WITH THE PT TODAY, PT DID EXPRESS INTEREST IN GOING TO SNF BUT SHE DOESN'T FEEL THAT HER FAMILY WILL BE IN AGREEMENT WITH THIS IDEA. A HOME O2 EVALUTATION WAS COMPLETED ON PT TO SEE IF SHE WOULD BE ELIGIBLE FOR OXYGEN IN HER HOME. WHEN PT IS STABLE FOR D/C, [facility].-MARGIE 11/27/20- PER CHART REVIEW WITH DR. KELSEY, PT CAN GO HOME TODAY LONG SHE EATS LUNCH AND DO WELL WITH THIS. PT IS STILL RECOMMENDING SNF. ATTEMPTED TO REACH SON AND [id number] AT CELL PHONE AND HOME NUMBERS TO DISCUSS D/C AND WHAT THEIR PREFERENCE IS WITH SNF VS HOME WITH HOME HEALTH. TRIED TO REACH BUT CALL WENT RIGHT TO . LMOM. ATTEMPTED TO REACH SON AND DAUGHTER A 2ND TIME.-MARGIE
--- NOTE | 2020-11-29 06:10 | NUR ---
SHIFT SUMMARY PT A&O W/ A LITTLE CONFUSION AT TIMES, SEVERAL PERIODS OF DESATTING WHILE RESTING (O2 IN LOW 70'S) PT WORE 3L 02 T/O THE NIGHT, CONTINUES TO SHALLOW BREATH, MEDICATED FOR PAIN X2, SLEPT T/O THE NIGHT, BEDRESTING AT THIS TIME, CALL LIGHT IN REACH, BED ALARM ACTIVE, WILL CONT TO MONITOR UNTIL REPORT GIVEN TO DAY RN.
[2020-11-29 06:12] LABS: BASOPHILS ABSOLUTE AUTO 0.02 K/mm3 (0.00-0.23); BASOPHILS PERCENT AUTO 0 % (0-2); EOSINOPHILS ABSOLUTE AUTO 0.32 K/mm3 (0.00-0.68); EOSINOPHILS PERCENT AUTO 5 % (0-6); Hematocrit 29.5 % (33.0-51.0); Hemoglobin 9.5 g/dL (11.5-16.0); IMMATURE GRAN ABSOLUTE AUTO 0.12 K/mm3 (0.00-0.10); IMMATURE GRAN PERCENT AUTO 2 % (0-1); LYMPHOCYTES ABSOLUTE AUTO 0.81 K/mm3 (0.84-5.20); LYMPHOCYTES PERCENT AUTO 12 % (21-46); MONOCYTES ABSOLUTE AUTO 0.41 K/mm3 (0.16-1.47); MONOCYTES PERCENT AUTO 6 % (4-13); Mean Corpuscular HGB 28.3 pg (26.0-34.0); Mean Corpuscular HGB Conc 32.2 g/dL (31.5-36.5); Mean Corpuscular Volume 88 fL (80-100); Mean Platelet Volume 9.7 fL (9.1-12.4); NEUTROPHILS ABSOLUTE AUTO 5.27 K/mm3 (1.96-9.15); NEUTROPHILS PERCENT AUTO 76 % (41-73); Platelet Count 271 K/mm3 (150-400); RDW Coefficient Variation 13.7 % (11.7-14.2); RDW Standard Deviation 42.4 fL (35.1-46.3); Red Blood Cell Count 3.36 M/mm3 (3.80-5.20); White Blood Cell Count 6.95 K/mm3 (4.00-11.30)
[2020-11-29 06:49] LABS: Anion Gap 4 mmol/L (6-16); Blood Urea Nitrogen 11 mg/dL (8-24); Bun/Creatinine Ratio 18.4 (12.0-20.0); CO2, Blood 33 mmol/L (21-32); Calcium, Blood 8.1 mg/dL (8.5-10.1); Chloride, Blood 107 mmol/L (98-108); Glomerular Filtration Rate >60 (60-); Glucose, Blood 85 mg/dL (70-99); Potassium, Blood 3.6 mmol/L (3.5-5.5); Sodium, Blood 144 mmol/L (136-145)
--- NOTE | 2020-11-29 12:00 | NUR ---
11/29/20- spoke with son, Anson. Family has talked with pt and they are agreeable to pt going to SNF. They would like her to go to [facility]. They discussed with pt that this is the best option for her to get stronger so that she can come home. Pt has strong family support post SNF with and son able to provide 24 hr care needed until pt is stronger. Discussed the SNF referral process with son and he acknowledged understanding. Will update him at [phone] on status of referral. If pt accepted, she could potentially go today. Family is agreeable with this plan. -gabriela
--- NOTE | 2020-11-29 12:46 | NUR ---
DR COLMENARES TO BEDSIDE, LUCAS DRAIN REMOVED. PT TOLERATED WELL
--- NOTE | 2020-11-29 12:47 | NUR ---
CALLED DR KELSEY AND DISCUSSED PT'S DESATURATIONS. DESATS TO 71% WITH 4L OXYGEN WITH MOVING FROM CHAIR TO BED. WITH EATING IN BED, DESATS TO MID-80S WITH EATING AND BED MOBILITY. THIS IS NEW FROM YESTERDAY PER PT WHO WORKED WITH HER AND MONITORED HER O2 SATS WHILE GETTING UP YESTERDAY (YESTERDAY ONLY DESATS TO 88% WITH GETTING UP OOB)
--- NOTE | 2020-11-29 13:21 | NUR ---
Spoke with [id number] to try and get in contact with her (pt's son) since he is not answering phone or returning calls. She shared the family discussion last night. [employer] requested that she have her call to answer any family questions or concerns with recommendations made for pt's treatment.
--- NOTE | 2020-11-29 14:34 | NUR ---
11/29/20- received message asking to call Crarie with [employer] as she had some questions. Spoke with Carrie, she was wondering if pt was planning on applying for Medicaid. Explained to her what pt's told me about past attempts to apply and receiving denial based on income. Discussed that family has been provided information to apply for caregivers through [employer]. Not sure where they are in that process. Was informed that pt would be sent to facility but she feels that pt is approved to go to facility. Discussed d/c plan post SNF, if the family is able to provide care. Was informed that authorization was going to be requested from insurance and once received, pt will need covid test within 24 hrs. [facility] management called and informed they would inform when auth. is received and to order COVID test after auth was received. Attempted to reach son by phone to update him, KENNETH.-kjw -kjsylvia
--- NOTE | 2020-11-29 19:00 | NUR ---
SHIFT SUMMARY NENITA COMPLAINED OF PAIN AND GOT IBUPROFEN AND PRN OXY THIS SHIFT. MIDLINE INCISION C/D/I AND OPEN TO AIR. LUCAS DRAIN PULLED BY DR COLMENARES. DESAT SIGNIFICANTLY ON 3L WITH ACTIVITY UP TO BSC, DR KELSEY ORDERED IV LASIX WHICH IMRPOVED HER SOB AND INCREASED HER URINE OUTPUT. NOW DESATS TO 81% (INSTEAD OF 71%) WITH GETTING UP TO BSC. ECHO AND CXR DONE THIS SHIFT. GRANDAUGHTER AND VISITED THIS SHIFT. EXU-DRY ON OVER OLD LUCAS SITE, THERE IS SIGNIFICANT SEROUS DRAINAGE. INCONT/CONTINENT. RED BUTTOCKS, TURNED IN BED, ENCOURAGED MOVEMENT, MEPILEX PLACED ON SACRAL AREA. CALL LIGHT IN REACH, REPORT GIVEN TO NIGHT NURSE
[2020-11-30 05:47] LABS: BASOPHILS ABSOLUTE AUTO 0.02 K/mm3 (0.00-0.23); BASOPHILS PERCENT AUTO 0 % (0-2); EOSINOPHILS ABSOLUTE AUTO 0.39 K/mm3 (0.00-0.68); EOSINOPHILS PERCENT AUTO 6 % (0-6); Hematocrit 30.3 % (33.0-51.0); Hemoglobin 9.5 g/dL (11.5-16.0); IMMATURE GRAN PERCENT AUTO 2 % (0-1); LYMPHOCYTES ABSOLUTE AUTO 0.63 K/mm3 (0.84-5.20); LYMPHOCYTES PERCENT AUTO 10 % (21-46); MONOCYTES ABSOLUTE AUTO 0.55 K/mm3 (0.16-1.47); MONOCYTES PERCENT AUTO 9 % (4-13); Mean Corpuscular HGB 27.3 pg (26.0-34.0); Mean Corpuscular HGB Conc 31.4 g/dL (31.5-36.5); Mean Corpuscular Volume 87 fL (80-100); Mean Platelet Volume 10.1 fL (9.1-12.4); NEUTROPHILS ABSOLUTE AUTO 4.63 K/mm3 (1.96-9.15); NEUTROPHILS PERCENT AUTO 73 % (41-73); Platelet Count 306 K/mm3 (150-400); RDW Coefficient Variation 13.9 % (11.7-14.2); RDW Standard Deviation 42.5 fL (35.1-46.3); Red Blood Cell Count 3.48 M/mm3 (3.80-5.20); White Blood Cell Count 6.32 K/mm3 (4.00-11.30)
[2020-11-30 06:06] LABS: Anion Gap 3 mmol/L (6-16); Blood Urea Nitrogen 9 mg/dL (8-24); Bun/Creatinine Ratio 15.6 (12.0-20.0); CO2, Blood 36 mmol/L (21-32); Calcium, Blood 8.1 mg/dL (8.5-10.1); Chloride, Blood 102 mmol/L (98-108); Creatinine, Blood 0.58 mg/dL (0.40-1.00); Glomerular Filtration Rate >60 (60-); Glucose, Blood 87 mg/dL (70-99); Potassium, Blood 3.3 mmol/L (3.5-5.5); Sodium, Blood 141 mmol/L (136-145)
--- NOTE | 2020-11-30 06:25 | NUR ---
SHIFT SUMMARY NO ACUTE CHANGES THIS SHIFT, 3L O2 VIA NC T/O SHIFT W/OCCASIONAL DESATS TO LOW 80'S, MEDICATED FOR PAIN X2, NO OTHER C/O ANY KIND, SLEPT T/O THE NIGHT & AT THIS TIME, CALL LIGHT IN REACH, WILL CONT TO MONITOR UNTIL REPORT GIVEN TO DAY RN.
--- NOTE | 2020-11-30 13:39 | NUR ---
11/30/20- PER DR. KELSEY, PT IS NOT STABLE TO D/C TODAY. SHE HAS PHTN (PULMONARY HYPERTENSION) AND NEEDS MORE DIURETICS. PT COULD POTENTIALLY D/C OVER THE WEEKEND. NOTIFIED [facility] AND THEY ARE REQUESTING THE AUTH. FOR INSURANCE IN CASE SHE GOES EITHER FRIDAY OR FRIDAY. PT WILL NEED TO HAVE OXYGEN WHEN SHE D/C TO SNF. CALLED AND SPOKE WITH AND UPDATED HIM THAT PT WILL NOT BE D/C TODAY. HE STATED THAT HE AND HIS DAUGHTER THAT CAME IN FROM OUT OF TOWN WILL BE VISITING TODAY. -MARGIE
--- NOTE | 2020-11-30 19:02 | NUR ---
SHIFT SUMMARY NENITA GOT PO PAIN MEDS X1 THIS SHIFT. RESPIRATORY STATUS MUCH MORE STABLE THIS SHIFT, DIDN'T DESAT BELOW 90% WITH 3L NC WHEN GETTING UP TO CHAIR. CONT/INCONT. INCONT BM THIS SHIFT. ENCOURAGED PO INTAKE, STILL POOR INTAKE BUT BETTER THAN YESTERDAY WITH PUREE DIET. DAUGHTER VISITED. DR KELSEY CAME TO ROOM TO DISCUSS CARE WITH DAUGHTER, PLAN IS STILL FOR SNF DISCHARGE TOMORROW. CALL LIGHT IN REACH, REPORT GIVEN TO NIGHT NURSE
[2020-12-01 05:16] LABS: BASOPHILS ABSOLUTE AUTO 0.01 K/mm3 (0.00-0.23); BASOPHILS PERCENT AUTO 0 % (0-2); EOSINOPHILS ABSOLUTE AUTO 0.15 K/mm3 (0.00-0.68); EOSINOPHILS PERCENT AUTO 2 % (0-6); Hematocrit 29.2 % (33.0-51.0); Hemoglobin 9.3 g/dL (11.5-16.0); IMMATURE GRAN ABSOLUTE AUTO 0.06 K/mm3 (0.00-0.10); IMMATURE GRAN PERCENT AUTO 1 % (0-1); LYMPHOCYTES PERCENT AUTO 10 % (21-46); MONOCYTES PERCENT AUTO 9 % (4-13); Mean Corpuscular HGB 27.4 pg (26.0-34.0); Mean Corpuscular HGB Conc 31.8 g/dL (31.5-36.5); Mean Corpuscular Volume 86 fL (80-100); Mean Platelet Volume 10.5 fL (9.1-12.4); NEUTROPHILS ABSOLUTE AUTO 5.34 K/mm3 (1.96-9.15); NEUTROPHILS PERCENT AUTO 78 % (41-73); Platelet Count 329 K/mm3 (150-400); RDW Coefficient Variation 13.8 % (11.7-14.2); RDW Standard Deviation 41.5 fL (35.1-46.3); White Blood Cell Count 6.86 K/mm3 (4.00-11.30)
[2020-12-01 05:32] LABS: Anion Gap 4 mmol/L (6-16); Blood Urea Nitrogen 8 mg/dL (8-24); Bun/Creatinine Ratio 11.8 (12.0-20.0); CO2, Blood 35 mmol/L (21-32); Calcium, Blood 8.4 mg/dL (8.5-10.1); Chloride, Blood 102 mmol/L (98-108); Creatinine, Blood 0.68 mg/dL (0.40-1.00); Glomerular Filtration Rate >60 (60-); Glucose, Blood 89 mg/dL (70-99); Potassium, Blood 3.8 mmol/L (3.5-5.5); Sodium, Blood 141 mmol/L (136-145)
[2020-12-01] MEDS ORDERED: ACET325 PO (09:56)
[2020-12-01] MEDS ORDERED: ALBU2.5V5 INH (09:56)
[2020-12-01] MEDS ORDERED: FLUTICASONE-SA1 EAC1 INH (09:56)
[2020-12-01] MEDS ORDERED: PANT40 PO (09:57)
[2020-12-01] MEDS ORDERED: MORP20L PO (09:57)
[2020-12-01 11:03] LABS: Influenza A, PCR NEGATIVE (NEGATIVE); Influenza B, PCR NEGATIVE (NEGATIVE); Resp Syncytial Virus, PCR NEGATIVE (NEGATIVE); SARS-Cov-2 (COVID-19) PCR, MMC NEGATIVE (NEGATIVE)
--- NOTE | 2020-12-01 11:38 | NUR ---
ASSUMED PT CARE @0700. PT [id number]. PLEASANT AND COOPERATIVE. REPORTS PAIN AT A TOLERABLE LEVEL. BM TODAY. APPETITE POOR, IS SUPPLEMENTING WITH ENSURE. CLIENT SATURATING IN THE 80S ON RA. O2 SAT TITRATED WITH CLIENT 90-95 ON 2L NC. SBA TO [facility] COMMODE. 14 ROSSANA REMOVED AND ABDOMINAL INCISION STERI-STIPPED PER DR. COLMENARES ORDER. INCISION IS APROXIMATED, NO DRAINAGE, NO S/S OF INFECTION LEFT ADULT EDUCATION PROFESSIONAL. LUCAS INCISION LEFT ABD IS WELL APPROXIMATED. PT WITH 2 STAGE 2 PI ON L GLUTEAL CLEFT, WOUND CLEANSED WITH NS AND DRESSED WITH FOAM BORDER. REPORT CALLED AND CLIENT TRANSPORTED TO [facility] BY WC.
== END 2020-12-01 11:32 | DRG 329 ==
LOC: ER 02:50 → ICUW 05:48 → PCU 11-22 17:39 → MEDS 11-26 → ENPENDDIS 12-01 09:33 → MEDS 12-01 11:32
PROVIDERS: Emergency Medicine; Family Medicine; Internal Medicine; Internal Medicine Gastroenterology; Surgery; ADMIT Internal Medicine
PROC: 0DB90ZX Excision of Duodenum, Open Approach, Diagnostic (ICD-10-PCS; 2020-11-20)
PROC: 0WQF0ZZ Repair Abdominal Wall, Open Approach (ICD-10-PCS; 2020-11-20)
PROC: 0DU907Z Supplement Duodenum with Autologous Tissue Substitute, Open Approach (ICD-10-PCS; principal; 2020-11-20 07:30)
PROC: 3E033XZ Introduction of Vasopressor into Peripheral Vein, Percutaneous Approach (ICD-10-PCS; 2020-11-21)
DX: K26.1 Acute duodenal ulcer with perforation (principal); J96.01 Acute respiratory failure with hypoxia; R18.8 Other ascites; J44.1 Chronic obstructive pulmonary disease with (acute) exacerbation; I27.23 Pulmonary hypertension due to lung diseases and hypoxia; I70.8 Atherosclerosis of other arteries; K43.2 Incisional hernia without obstruction or gangrene; K43.9 Ventral hernia without obstruction or gangrene; I95.9 Hypotension, unspecified; Z79.899 Other long term (current) drug therapy; Z98.890 Other specified postprocedural states; Z87.891 Personal history of nicotine dependence; Z86.010 Personal history of colon polyps; Z23 Encounter for immunization; Z99.81 Dependence on supplemental oxygen
CPT/HCPCS: 0241U; 36415; 71045; 74177; 74240; 80048; 80053; 81001; 82803; 83605; 83690; 85025; 85027; 87070; 87075; 87086; 87205; 88305; 92610; 93306; 94640; 94760; 94761; 94762; 96361; 96365-59; 96375; 97110; 97116; 97162; 97530; 99285-25; A9270; C1751; C9113; J1100; J1170; J1644; J1885; J1940; J2370; J2405; J2543; J2704; J3010; J7030; J7040; J7060; J7120; Q2038; Q9967

== ENCOUNTER 2021-01-11 21:53 | Emergency (ER) | payer MEDICARE ==
[~2021-01-11] VITALS: Ht 167.6 cm; Wt 47.2 kg
[~2021-01-11 21:53] MED LIST changes: +ACET325 PO; +ALBU2.5V5 INH; +FLUTICASONE-SA1 EAC1 INH; +MORP20L PO; +PANT40 PO
[2021-01-11 22:37] LABS: BASOPHILS ABSOLUTE AUTO 0.01 K/mm3 (0.00-0.23); BASOPHILS PERCENT AUTO 0 % (0-2); EOSINOPHILS ABSOLUTE AUTO 0.21 K/mm3 (0.00-0.68); EOSINOPHILS PERCENT AUTO 2 % (0-6); Hematocrit 28.4 % (33.0-51.0); IMMATURE GRAN ABSOLUTE AUTO 0.04 K/mm3 (0.00-0.10); IMMATURE GRAN PERCENT AUTO 0 % (0-1); LYMPHOCYTES PERCENT AUTO 10 % (21-46); MONOCYTES ABSOLUTE AUTO 0.58 K/mm3 (0.16-1.47); MONOCYTES PERCENT AUTO 6 % (4-13); Mean Corpuscular HGB 26.9 pg (26.0-34.0); Mean Corpuscular HGB Conc 31.7 g/dL (31.5-36.5); Mean Corpuscular Volume 85 fL (80-100); Mean Platelet Volume 9.9 fL (9.1-12.4); NEUTROPHILS PERCENT AUTO 81 % (41-73); Platelet Count 317 K/mm3 (150-400); RDW Coefficient Variation 17.2 % (11.7-14.2); RDW Standard Deviation 53.2 fL (35.1-46.3); Red Blood Cell Count 3.34 M/mm3 (3.80-5.20); White Blood Cell Count 9.24 K/mm3 (4.00-11.30)
[2021-01-11 23:01] LABS: Alanine Aminotransfer (ALT/SGP 12 U/L (12-78); Albumin, Blood 2.4 g/dL (3.4-5.0); Albumin/Globulin Ratio 0.5 (0.8-1.8); Alk Phos 75 U/L (50-136); Anion Gap 4 mmol/L (6-16); Aspartate Aminotrans (AST/SGOT 12 U/L (12-37); Bilirubin, Total 0.2 mg/dL (0.1-1.0); Blood Urea Nitrogen 27 mg/dL (8-24); Bun/Creatinine Ratio 35.1 (12.0-20.0); CO2, Blood 30 mmol/L (21-32); CPK Creatine Kinase 17 U/L (26-193); Calcium, Blood 8.5 mg/dL (8.5-10.1); Chloride, Blood 101 mmol/L (98-108); Creatinine, Blood 0.77 mg/dL (0.40-1.00); Globulin, Blood 4.5 g/dL (2.2-4.0); Glomerular Filtration Rate >60 (60-); Glucose, Blood 110 mg/dL (70-99); Potassium, Blood 4.2 mmol/L (3.5-5.5); Sodium, Blood 135 mmol/L (136-145); Total Protein, Blood 6.9 g/dL (6.4-8.2); Troponin I 0.024 ng/mL (0.000-0.040)
[2021-01-12 00:47] LABS: Source, Urine Clean Catch
[2021-01-12 00:49] LABS: Bilirubin, Urine Neg (Neg); Blood, Urine Neg (Neg); Glucose Qualitative, Urine Neg (Neg); Ketones, Urine Neg (Neg); Leukocyte Esterase, Urine 1+ (Neg); Nitrite, Urine Neg (Neg); Protein, Urine 1+ (Neg); Specific Gravity, Urine 1.015 (1.003-1.022); Urobilinogen, Urine NORM (Normal)
[2021-01-12 00:55] LABS: Appearance, Urine Clear (Clear); Bacteria Mod /hpf; Color, Urine Yellow (P-Yellow); Red Blood Cells, Urine 0-2 /hpf (0-2); Squamous Epithelial Cells Few /hpf (Few)
== END 2021-01-12 02:10 | disposition home or self-care (01) ==
LOC: ER 21:53
PROVIDERS: Emergency Medicine
DX: R51.9 Headache, unspecified (principal); Z79.899 Other long term (current) drug therapy; Z87.891 Personal history of nicotine dependence
CPT/HCPCS: 36415; 51701; 71046; 80053; 81001; 82550; 84484; 85025; 87086; 93005; 93010; 99284-25

== ENCOUNTER → 2021-01-15 | Outpatient (CLI) | payer MEDICARE | END | disposition home or self-care (01) | LOC: LAB SHORT 14:54 → LAB EV 14:54 | DX: R82.998 Other abnormal findings in urine (principal) | CPT/HCPCS: 87086 ==